=== PATIENT | female | born 1935 | race Caucasian/White ===

== ENCOUNTER → 2017-03-16 | Outpatient (CLI) | payer MEDICARE, BC ==
[~2017-03-16] MED LIST: ALBU8.5H8 INH; ASPI-496 PO; CARB1TAB20 PO; CARB1TAB46 PO; CHOL100014 PO; CRAN1CAP2 PO; FERR325T18 PO; FLUT1DIS5 IH; LACT1TAB3 PO; LEVO112T4 PO; LEVO750T26 PO; LISI-167 PO; LOVA40TA2 PO; METF10002 PO; OMEG500C3 PO; OMEP-110 PO; PRED-402 PO; PRED5TAB PO; SIMV20TA3 PO
== END | disposition home or self-care (01) ==
LOC: CFH 14:19
PROVIDERS: ATTEND Internal Medicine
DX: M25.474 Effusion, right foot (principal)

== ENCOUNTER → 2017-12-09 | Outpatient (CLI) | payer MEDICARE, BC | END | disposition home or self-care (01) | LOC: CFH 10:29 | PROVIDERS: ATTEND Internal Medicine | DX: Z13.820 Encounter for screening for osteoporosis (principal); E03.9 Hypothyroidism, unspecified; E08.40 Diabetes mellitus due to underlying condition with diabetic neuropathy, unspecified; E55.9 Vitamin D deficiency, unspecified; N95.9 Unspecified menopausal and perimenopausal disorder | CPT/HCPCS: 77080 ==

== ENCOUNTER → 2018-02-05 | Outpatient (CLI) | payer MEDICARE, BC ==
[2018-02-05 16:03] LABS: ALBUMIN 3.8 g/dL (3.4-5.0); ANION GAP 11 mmol/L (5-15); CALCIUM 10.1 mg/dL (8.5-10.1); CHLORIDE 105 mmol/L (98-107)
[2018-02-05 16:07] LABS: % IRON SATURATION 10 % (20-55); ALANINE AMINOTRANSFERASE 14 U/L (12-78); ALKALINE PHOSPHATASE 81 U/L (45-117); BILIRUBIN,TOTAL 0.3 mg/dL (0.2-1.0); CREATININE 0.77 mg/dL (0.55-1.02); IRON LEVEL 37 mcg/dL (50-170); TOTAL IRON BINDING CAPACITY 385 mcg/dL (250-450); TOTAL PROTEIN 7.3 g/dL (6.4-8.2)
[2018-02-05 16:10] LABS: BASOPHILS # (AUTO) 0.04 x10^3/uL (0-0.1); BASOPHILS % (AUTO) 1 % (0-1); EOSINOPHILS # (AUTO) 0.14 x10^3/uL (0-0.4); EOSINOPHILS % (AUTO) 2 % (1-7); LYMPHOCYTES # (AUTO) 1.57 x10^3/uL (1-3.4); LYMPHOCYTES % (AUTO) 17 % (22-44); MD NO; MEAN CORPUSCULAR HEMOGLOBIN 30.4 pg (27.0-34.8); MEAN CORPUSCULAR HGB CONC 33.3 g/dL (32.4-35.8); MEAN CORPUSCULAR VOLUME 91.4 fL (80-100); MEAN PLATELET VOLUME 8.5 fL (7.4-10.4); MONOCYTES # (AUTO) 0.35 x10^3/uL (0.2-0.8); MONOCYTES % (AUTO) 4 % (2-9); NEUTROPHILS # (AUTO) 7.04 x10^3/uL (1.8-6.8); NEUTROPHILS % (AUTO) 77 % (42-75); PLATELET COUNT 354 x10^3/uL (130-400); RED BLOOD COUNT 4.03 x10^6/uL (3.82-5.3); RED CELL DISTRIBUTION WIDTH 15.4 % (9.6-15.2)
== END | disposition home or self-care (01) ==
LOC: CFH 12:42
PROVIDERS: ATTEND Internal Medicine
DX: M17.11 Unilateral primary osteoarthritis, right knee (principal); D50.9 Iron deficiency anemia, unspecified; E11.65 Type 2 diabetes mellitus with hyperglycemia; I10 Essential (primary) hypertension; K21.9 Gastro-esophageal reflux disease without esophagitis
CPT/HCPCS: 36415; 80053; 82728; 83540; 83550; 85025

== ENCOUNTER → 2018-02-09 | Outpatient (CLI) | payer MEDICARE, BC | END | disposition home or self-care (01) | LOC: RAD 10:02 | PROVIDERS: ATTEND Internal Medicine | DX: M25.561 Pain in right knee (principal); M79.604 Pain in right leg; R60.9 Edema, unspecified ==

== ENCOUNTER 2018-04-06 15:56 | Inpatient (IN) | payer MEDICARE, BC ==
[~2018-04-06] VITALS: Ht 167.6 cm; Wt 83.3 kg
[2018-04-06 16:32] LABS: BASOPHILS # (AUTO) 0.02 x10^3/uL (0-0.1); BASOPHILS % (AUTO) 0 % (0-1); EOSINOPHILS # (AUTO) 0.11 x10^3/uL (0-0.4); EOSINOPHILS % (AUTO) 1 % (1-7); LYMPHOCYTES # (AUTO) 1.53 x10^3/uL (1-3.4); LYMPHOCYTES % (AUTO) 19 % (22-44); MD NO; MEAN CORPUSCULAR HEMOGLOBIN 30.3 pg (27.0-34.8); MEAN CORPUSCULAR HGB CONC 33.3 g/dL (32.4-35.8); MEAN CORPUSCULAR VOLUME 91.2 fL (80-100); MEAN PLATELET VOLUME 8.3 fL (7.4-10.4); MONOCYTES # (AUTO) 0.47 x10^3/uL (0.2-0.8); MONOCYTES % (AUTO) 6 % (2-9); NEUTROPHILS # (AUTO) 6.07 x10^3/uL (1.8-6.8); NEUTROPHILS % (AUTO) 74 % (42-75); PLATELET COUNT 300 x10^3/uL (130-400); RED BLOOD COUNT 3.88 x10^6/uL (3.82-5.3); RED CELL DISTRIBUTION WIDTH 14.8 % (9.6-15.2)
[2018-04-06 16:41] LABS: ALANINE AMINOTRANSFERASE 18 U/L (12-78); ALBUMIN 3.8 g/dL (3.4-5.0); ANION GAP 9 mmol/L (5-15); CALCIUM 9.7 mg/dL (8.5-10.1); CHLORIDE 106 mmol/L (98-107); CREATININE 0.71 mg/dL (0.55-1.02); INTERNATIONAL NORMALIZED RATIO 1.01 (0.93-1.1); PROTHROMBIN TIME 10.7 Seconds (9.6-11.5)
[2018-04-06 16:46] LABS: ALKALINE PHOSPHATASE 67 U/L (45-117); BILIRUBIN,TOTAL 0.3 mg/dL (0.2-1.0); TROPONIN I < 0.015 ng/mL (0.000-0.045)
[2018-04-06] MEDS ORDERED: BACITRACIN ZINC OINT 500U/GM, 0.9 GM ONE (16:49)
[2018-04-06] MEDS ORDERED: LISI-167 PO (17:08)
[2018-04-06] MEDS ORDERED: POLYETHYLENE GLYCOL 17 GM PACKET PO PRN (18:00)
[2018-04-06] MEDS: FERROUS SULFATE 325 MG TABLET PO SCH (18:00)
[2018-04-06] MEDS: CARBIDOPA/LEVODOPA 10 MG/100 MG TABLET PO SCH ×2 (18:00→22:23)
[2018-04-06] MEDS ORDERED: BISACODYL 10 MG SUPP PR PRN (18:00)
[2018-04-06] MEDS ORDERED: ONDANSETRON ODT 4 MG PO PRN (18:00)
[2018-04-06] MEDS ORDERED: ACETAMINOPHEN 325 MG TABLET PO PRN (18:00)
[2018-04-06] MEDS: BUDESONIDE 0.5 MG/2 ML INHA HHN SCH (18:30)
[2018-04-06] MEDS: ALBUTEROL SULFATE 2.5 MG/3 ML HHN SCH (18:30)
[2018-04-06] MEDS: SODIUM CHLORIDE FLUSH 10ML SYR IVF SCH (21:00)
[2018-04-06] MEDS ORDERED: TEMPLATE NON-FORMULARY MED. (Fluticasone/Salmeterol** (Advair 500-50 Diskus**) 1 PUFF) IH SCH (21:00)
[2018-04-06] MEDS: OMEPRAZOLE 20 MG CAPSULE.DR PO SCH (22:23)
[2018-04-06] MEDS: SIMVASTATIN 20 MG TABLET PO SCH (22:23)
[2018-04-06] MEDS: HEPARIN 5,000 UNITS/ML, 1ML SQ SCH (22:24)
[2018-04-07] VITALS (10 sets, daily range): BP systolic 87–136; BP diastolic 60–79
[2018-04-07] MEDS: ALBUTEROL SULFATE 2.5 MG/3 ML HHN SCH ×4 (00:30→18:30)
[2018-04-07 05:24] LABS: CHLORIDE 108 mmol/L (98-107)
[2018-04-07 05:33] LABS: BASOPHILS # (AUTO) 0.05 x10^3/uL (0-0.1); BASOPHILS % (AUTO) 1 % (0-1); EOSINOPHILS # (AUTO) 0.08 x10^3/uL (0-0.4); EOSINOPHILS % (AUTO) 1 % (1-7); LYMPHOCYTES # (AUTO) 1.66 x10^3/uL (1-3.4); LYMPHOCYTES % (AUTO) 27 % (22-44); MD NO; MEAN CORPUSCULAR HEMOGLOBIN 30.5 pg (27.0-34.8); MEAN CORPUSCULAR HGB CONC 33.7 g/dL (32.4-35.8); MEAN CORPUSCULAR VOLUME 90.3 fL (80-100); MEAN PLATELET VOLUME 8.1 fL (7.4-10.4); MONOCYTES # (AUTO) 0.41 x10^3/uL (0.2-0.8); MONOCYTES % (AUTO) 7 % (2-9); NEUTROPHILS # (AUTO) 4.04 x10^3/uL (1.8-6.8); NEUTROPHILS % (AUTO) 65 % (42-75); PLATELET COUNT 277 x10^3/uL (130-400); RED CELL DISTRIBUTION WIDTH 15.2 % (9.6-15.2)
[2018-04-07 05:35] LABS: ANION GAP 8 mmol/L (5-15); CALCIUM 9.9 mg/dL (8.5-10.1); CREATININE 0.61 mg/dL (0.55-1.02)
[2018-04-07 05:36] LABS: ALANINE AMINOTRANSFERASE 12 U/L (12-78); ALBUMIN 3.6 g/dL (3.4-5.0); ALKALINE PHOSPHATASE 62 U/L (45-117); BILIRUBIN,TOTAL 0.6 mg/dL (0.2-1.0); TOTAL PROTEIN 6.8 g/dL (6.4-8.2); TROPONIN I < 0.015 ng/mL (0.000-0.045)
[2018-04-07] MEDS: HEPARIN 5,000 UNITS/ML, 1ML SQ SCH ×3 (05:56→21:38)
[2018-04-07] MEDS: BUDESONIDE 0.5 MG/2 ML INHA HHN SCH ×2 (06:30→18:30)
[2018-04-07] MEDS: CARBIDOPA/LEVODOPA 10 MG/100 MG TABLET PO SCH ×4 (07:40→21:37)
[2018-04-07] MEDS ORDERED: metFORMIN XR 500 MG TAB.ER.24H PO SCH (09:00)
[2018-04-07] MEDS ORDERED: LEVOTHYROXINE 112 MCG TABLET PO SCH (09:00)
[2018-04-07] MEDS ORDERED: LISINOPRIL 10 MG TABLET PO SCH (09:00)
[2018-04-07] MEDS: SODIUM CHLORIDE FLUSH 10ML SYR IVF SCH ×2 (09:00→21:00)
[2018-04-07] MEDS ORDERED: TEMPLATE NON-FORMULARY MED. (Cranberry Conc/Ascorbic Acid** (Cranberry 12,600 Mg Softgel PO SCH (09:00)
[2018-04-07] MEDS: FERROUS SULFATE 325 MG TABLET PO SCH ×2 (09:19→15:51)
[2018-04-07] MEDS: SENNA/DOCUSATE TABLET PO SCH (09:19)
[2018-04-07] MEDS: LACTOBACILLUS CHEW TABLET PO SCH (09:20)
[2018-04-07] MEDS: ASPIRIN 81 MG TABLET EC PO SCH (09:20)
[2018-04-07] MEDS: CHOLECALCIFEROL 1,000 UNIT TABLET PO SCH (09:20)
[2018-04-07 11:48] LABS: TROPONIN I < 0.015 ng/mL (0.000-0.045)
[2018-04-07 14:41] LABS: HEMOGLOBIN A1C 6.4 % (4.2-6.3)
[2018-04-07] MEDS: INSULIN LISPRO 100 UNITS/ML, PEN SQ-INSULIN SCH ×2 (16:30→21:00)
[2018-04-07] MEDS ORDERED: SODIUM CHLORIDE 0.9%, 500ML IVBOLUS ONE (17:00)
[2018-04-07] MEDS: OMEPRAZOLE 20 MG CAPSULE.DR PO SCH (21:37)
[2018-04-07] MEDS: SIMVASTATIN 20 MG TABLET PO SCH (21:38)
[2018-04-08 01:12] VITALS: BP_SYST 110; BP_SYST 112; BP_SYST 97; BP_DIAS 61; BP_DIAS 71; BP_DIAS 74
[2018-04-08] MEDS: CARBIDOPA/LEVODOPA 10 MG/100 MG TABLET PO SCH ×4 (06:34→20:10)
[2018-04-08] MEDS: HEPARIN 5,000 UNITS/ML, 1ML SQ SCH ×3 (06:35→21:05)
[2018-04-08] MEDS: INSULIN LISPRO 100 UNITS/ML, PEN SQ-INSULIN SCH ×4 (07:00→20:11)
[2018-04-08 08:09] VITALS: BP_SYST 105; BP_SYST 133; BP_SYST 146; BP_DIAS 69; BP_DIAS 76; BP_DIAS 81
[2018-04-08] MEDS: CHOLECALCIFEROL 1,000 UNIT TABLET PO SCH (08:49)
[2018-04-08] MEDS: ASPIRIN 81 MG TABLET EC PO SCH (08:50)
[2018-04-08] MEDS: metFORMIN XR 500 MG TAB.ER.24H PO SCH (08:50)
[2018-04-08] MEDS: LEVOTHYROXINE 100 MCG TABLET PO SCH (08:50)
[2018-04-08] MEDS: SODIUM CHLORIDE FLUSH 10ML SYR IVF SCH ×2 (08:51→20:10)
[2018-04-08] MEDS: LACTOBACILLUS CHEW TABLET PO SCH (08:51)
[2018-04-08] MEDS: FERROUS SULFATE 325 MG TABLET PO SCH ×2 (08:51→17:21)
[2018-04-08] MEDS: SENNA/DOCUSATE TABLET PO SCH (08:51)
[2018-04-08] MEDS ORDERED: LISINOPRIL 5 MG TABLET PO SCH (09:00)
[2018-04-08] MEDS: SODIUM CHLORIDE 0.9% 1,000 ML IV SCH (11:23)
[2018-04-08] MEDS: BUDESONIDE 0.5 MG/2 ML INHA HHN SCH ×2 (11:26→18:30)
[2018-04-08 13:50] VITALS: BP_SYST 12; BP_SYST 127; BP_SYST 94; BP_DIAS 55; BP_DIAS 70; BP_DIAS 75
[2018-04-08] MEDS ORDERED: MAGNESIUM SULFATE PMX 4GM/100M 100 ML IV ONE (14:30)
[2018-04-08 19:30] VITALS: BP 126/77
[2018-04-08] MEDS: OMEPRAZOLE 20 MG CAPSULE.DR PO SCH (20:10)
[2018-04-08] MEDS: SIMVASTATIN 20 MG TABLET PO SCH (20:11)
[2018-04-09] VITALS (12 sets, daily range): BP systolic 109–157; BP diastolic 61–82
[2018-04-09] MEDS: SODIUM CHLORIDE 0.9% 1,000 ML IV SCH (01:04)
[2018-04-09] MEDS: CARBIDOPA/LEVODOPA 10 MG/100 MG TABLET PO SCH ×2 (05:17→11:43)
[2018-04-09] MEDS: HEPARIN 5,000 UNITS/ML, 1ML SQ SCH ×2 (05:17→14:00)
[2018-04-09 05:36] LABS: ANION GAP 9 mmol/L (5-15); CALCIUM 9.3 mg/dL (8.5-10.1); CHLORIDE 110 mmol/L (98-107)
[2018-04-09 05:37] LABS: CREATININE 0.61 mg/dL (0.55-1.02)
[2018-04-09] MEDS ORDERED: ALBUTEROL SULFATE 2.5 MG/3 ML HHN SCH (06:30)
[2018-04-09] MEDS: BUDESONIDE 0.5 MG/2 ML INHA HHN SCH (06:30)
[2018-04-09] MEDS: INSULIN LISPRO 100 UNITS/ML, PEN SQ-INSULIN SCH ×2 (07:00→11:00)
[2018-04-09] MEDS: SENNA/DOCUSATE TABLET PO SCH (08:39)
[2018-04-09] MEDS: ASPIRIN 81 MG TABLET EC PO SCH (08:39)
[2018-04-09] MEDS: LEVOTHYROXINE 100 MCG TABLET PO SCH (08:39)
[2018-04-09] MEDS: LACTOBACILLUS CHEW TABLET PO SCH (08:39)
[2018-04-09] MEDS: metFORMIN XR 500 MG TAB.ER.24H PO SCH (08:39)
[2018-04-09] MEDS: FERROUS SULFATE 325 MG TABLET PO SCH (08:40)
[2018-04-09] MEDS: SODIUM CHLORIDE FLUSH 10ML SYR IVF SCH (08:40)
[2018-04-09] MEDS: CHOLECALCIFEROL 1,000 UNIT TABLET PO SCH (08:40)
[2018-04-09] MEDS ORDERED: DOCU-131 PO (13:41)
[2018-04-09] MEDS ORDERED: CARB1TAB20 PO (13:41)
== END 2018-04-09 17:14 | disposition home or self-care (01) | DRG 74 ==
LOC: ED 17:00 → EDIP 17:01 → ED 17:09 → 4WST 18:12 → DCLOUNGE 04-09 16:50
PROVIDERS: ADMIT Internal Medicine; ATTEND Internal Medicine
DX: G90.8 Other disorders of autonomic nervous system (principal); S02.2XXA Fracture of nasal bones, initial encounter for closed fracture; D50.9 Iron deficiency anemia, unspecified; E11.9 Type 2 diabetes mellitus without complications; E78.5 Hyperlipidemia, unspecified; E83.42 Hypomagnesemia; E89.0 Postprocedural hypothyroidism; G20 Parkinson's disease; I10 Essential (primary) hypertension; K59.00 Constipation, unspecified; S80.02XA Contusion of left knee, initial encounter; S80.212A Abrasion, left knee, initial encounter; W18.39XA Other fall on same level, initial encounter; Y93.89 Activity, other specified; Y92.89 Other specified places as the place of occurrence of the external cause; Y99.8 Other external cause status; Z82.49 Family history of ischemic heart disease and other diseases of the circulatory system; Z66 Do not resuscitate; Z87.891 Personal history of nicotine dependence; Z90.710 Acquired absence of both cervix and uterus; R00.0 Tachycardia, unspecified
CPT/HCPCS: 0399T; 36415; 70486; 71045; 80048; 80053; 82533; 82962; 83036; 83735; 83880; 84443; 84484; 85025; 85610; 85730; 93005; 93306; 93880; 94640; 99285; G0378; J1644; J7613; J7626; J3475; J7030; J7040

== ENCOUNTER 2018-11-15 17:47 | Emergency (ER) | payer MEDICARE, BC ==
[~2018-11-15] VITALS: Ht 167.6 cm; Wt 76.0 kg
[~2018-11-15 17:47] MED LIST changes: +DOCU-131 PO
[2018-11-15] MEDS ORDERED: ASPIRIN 81 MG TABLET CHEW PO ONE (18:00)
--- NOTE | 2018-11-15 18:09 | NUR ---
PATIENT ARRIVES WITH DAUGHTER FROM [facility] WHERE SHE WENT TODAY FOR CONFUSION, WEAKNESS. MD THOUGHT PATIENT POSSIBLY HAVING A TIA. IN BED, RAILS UP.
[2018-11-15 18:13] LABS: BASOPHILS # (AUTO) 0.04 x10^3/uL (0-0.1); BASOPHILS % (AUTO) 1 % (0-1); EOSINOPHILS # (AUTO) 0.12 x10^3/uL (0-0.4); EOSINOPHILS % (AUTO) 2 % (1-7); LYMPHOCYTES # (AUTO) 1.66 x10^3/uL (1-3.4); LYMPHOCYTES % (AUTO) 23 % (22-44); MD NO; MEAN CORPUSCULAR HEMOGLOBIN 31.5 pg (27.0-34.8); MEAN CORPUSCULAR HGB CONC 32.9 g/dL (32.4-35.8); MEAN CORPUSCULAR VOLUME 95.8 fL (80-100); MEAN PLATELET VOLUME 7.6 fL (7.4-10.4); MONOCYTES % (AUTO) 6 % (2-9); NEUTROPHILS # (AUTO) 5.12 x10^3/uL (1.8-6.8); NEUTROPHILS % (AUTO) 70 % (42-75); PLATELET COUNT 330 x10^3/uL (130-400); RED BLOOD COUNT 4.04 x10^6/uL (3.82-5.3); RED CELL DISTRIBUTION WIDTH 14.6 % (9.6-15.2)
[2018-11-15 18:22] LABS: ALBUMIN 4.2 g/dL (3.4-5.0); ANION GAP 8 mmol/L (5-15); CHLORIDE 106 mmol/L (98-107); CREATININE 0.72 mg/dL (0.55-1.02)
[2018-11-15] MEDS ORDERED: ASPIRIN 81 MG TABLET CHEW ONE (18:22)
[2018-11-15 18:26] LABS: TROPONIN I < 0.015 ng/mL (0.000-0.045)
--- NOTE | 2018-11-15 19:59 | NUR ---
Pt assisst x 1 to BSC, attempting to void, family remains at bedside, fluids provided. Will f/u for UA.
--- NOTE | 2018-11-15 21:57 | NUR ---
PT UP TO BSC X 1 ASSISST, UNABLE TO VOID, DENIES PAIN. dAUGHTER AT BEDSIDE, WILL CONTIUNUE TO ATTEMPT. VITALS STABLE
--- NOTE | 2018-11-15 22:10 | NUR ---
Pt voids, urine collected, waiting for results, assisst back to bed, daughter remains at bedside.
[2018-11-15 22:31] LABS: MICROSCOPIC AUTO
[2018-11-15 23:04] LABS: CULTURE INDICATED? YES
--- NOTE | 2018-11-15 23:38 | NUR ---
SBP REMAINS HIGH, DENIES PAIN OR NEED TO USE BATHROOM, md NOTIFIED. 0.1MG CLONIDINE ADMINISTERED PER MD ORDERS, WILL MONITOR BP.
[2018-11-16 00:32] VITALS: BP 180/95
--- NOTE | 2018-11-16 00:32 | NUR ---
SBP improved, notified, ok to d/c home. Asymptomatic, all other vitals stable. Exitcare reviewed w/ pt and daughter, verbalize understanding. Taken by WC to front lobby for transfer home.
== END 2018-11-16 00:50 | disposition home or self-care (01) ==
LOC: ED 23:59
DX: R41.82 Altered mental status, unspecified (principal); N30.00 Acute cystitis without hematuria; E11.9 Type 2 diabetes mellitus without complications; I10 Essential (primary) hypertension; E07.9 Disorder of thyroid, unspecified; E78.5 Hyperlipidemia, unspecified; Z87.891 Personal history of nicotine dependence
CPT/HCPCS: 36415; 71045; 80048; 81001; 82040; 84443; 84484; 85025; 87086; 93005; 99284

== ENCOUNTER 2019-02-20 02:43 | Emergency (ER) | payer MEDICARE, BC ==
[~2019-02-20] VITALS: Ht 170.2 cm; Wt 70.0 kg
[~2019-02-20 02:43] MED LIST changes: +CEFD300C37 PO; +CHOL200078 PO; +FLUT1DIS3 INH; +IPRA30SP NS; +LACT1TAB13 PO; +LEVO100T5 PO; +LISI-170 PO; +MELA5TAB14 PO; +METF10007 PO; +METO50TA82 PO; +MONT10TA6 PO; +SERT100T32 PO
[2019-02-20] MEDS ORDERED: LIDOCAINE 1%-EPI 1:100K, 50ML INFIL ONE (03:00)
[2019-02-20] MEDS ORDERED: DIPH,PERTUSS(ACELL),TET VAC/PF NC IM-VACC ONE (03:00)
--- NOTE | 2019-02-20 03:04 | NUR ---
THIS 83 YOF BIB [facility] FROM [facility] S/P FALL. PT STATES "I JUST WENT DOWN." PT DENIED C/O CP, LIGHTHEADED, DENIED LOC. PT NOTED TO HAVE SKIN TEAR TO RIGHT ARM AND LAC TO ELBOW. PT REPORTS DID HIT HEAD ON FLOOR, DENIES LOC. PT DENIES N/V.
[2019-02-20] MEDS ORDERED: DIPH,PERTUSS(ACELL),TET VAC/PF 0.5 ML IM-VACC ONE ×2 (03:08→03:30)
--- NOTE | 2019-02-20 03:23 | NUR ---
TWISTER FRAME TENDER AT BEDSIDE TO IRRIGATE WOUNDS. PT GIVEN TDAP VACCINE ORDERED.
[2019-02-20] MEDS ORDERED: NEOSPORIN OINT. PKT 1 PACKET ONE (04:03)
[2019-02-20 04:14] VITALS: BP 165/71
--- NOTE | 2019-02-20 04:15 | NUR ---
EVENT MANAGER AT BEDSIDE TO CLEAN AND DRESS WOUNDS. THREE SUTURES TO ELBOW LAC, DRSG TO SKIN TEAR.
--- NOTE | 2019-02-20 04:32 | NUR ---
REVIEWED DISCHARGE INSTRUCTIONS W/ PT AND FAMILY MEMBER, VERBALIZED UNDERSTANDING TO INFORMATION PROVIDED INCLUDING FOLLOW UP CARE, RETURN PRECAUTIONS AND WOUND CARE. PT AND FAMILY MEMBER VERBALIZED UNDERSTANDING TO SUTURE REMOVAL IN 12 DAYS. PT WAS ASSISTED TO BR VIA WC. PT AND FAMILY MEMBER AWARE WAITING FOR [facility] TRANSFER BACK TO ASSISTED LIVING FACILITY.
--- NOTE | 2019-02-20 04:49 | NUR ---
REPORT CALLED TO B[place]OLO AT [facility]. AWARE PENDING TRANSFER VIA [facility] BACK TO [facility].
--- NOTE | 2019-02-20 04:57 | NUR ---
PT AND FAMILY MEMBER AWARE OF PENDING [facility] ARRIVAL AROUND 0530
--- NOTE | 2019-02-20 05:59 | NUR ---
[facility] ARRIVED TO TRANSFER PT BACK TO FACILITY.
== END 2019-02-20 06:01 | disposition home or self-care (01) ==
LOC: ED 03:48
DX: S51.011A Laceration without foreign body of right elbow, initial encounter (principal); S41.101A Unspecified open wound of right upper arm, initial encounter; I10 Essential (primary) hypertension; E78.5 Hyperlipidemia, unspecified; E11.9 Type 2 diabetes mellitus without complications; W01.0XXA Fall on same level from slipping, tripping and stumbling without subsequent striking against object, initial encounter; Y93.89 Activity, other specified; Y92.89 Other specified places as the place of occurrence of the external cause; Y99.8 Other external cause status
CPT/HCPCS: 12051; 90471; 90715

== ENCOUNTER 2019-05-06 16:49 | Emergency (ER) | payer MEDICARE, BC ==
[~2019-05-06] VITALS: Ht 167.6 cm; Wt 75.0 kg
[2019-05-06 17:03] VITALS: BP 148/66
--- NOTE | 2019-05-06 17:07 | NUR ---
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 PT WITH HX OF BLOODY NOSE THAT REQUIRED CAUTERIZATION. PT WITH HX HTN. VSS ON ARRIVAL
[2019-05-06] MEDS ORDERED: SILVER NITRATE STICK TP ONE (17:11)
[2019-05-06] MEDS ORDERED: DEXAMETHASONE 4 MG TABLET ONE (17:15)
[2019-05-06 17:38] LABS: BASOPHILS # (AUTO) 0.03 x10^3/uL (0-0.1); BASOPHILS % (AUTO) 1 % (0-1); EOSINOPHILS # (AUTO) 0.25 x10^3/uL (0-0.4); EOSINOPHILS % (AUTO) 4 % (1-7); LYMPHOCYTES # (AUTO) 1.54 x10^3/uL (1-3.4); LYMPHOCYTES % (AUTO) 26 % (22-44); MD NO; MEAN CORPUSCULAR HEMOGLOBIN 29.3 pg (27.0-34.8); MEAN CORPUSCULAR HGB CONC 32.6 g/dL (32.4-35.8); MEAN CORPUSCULAR VOLUME 89.8 fL (80-100); MEAN PLATELET VOLUME 8.1 fL (7.4-10.4); MONOCYTES # (AUTO) 0.33 x10^3/uL (0.2-0.8); MONOCYTES % (AUTO) 6 % (2-9); NEUTROPHILS # (AUTO) 3.73 x10^3/uL (1.8-6.8); NEUTROPHILS % (AUTO) 63 % (42-75); PLATELET COUNT 270 x10^3/uL (130-400); RED BLOOD COUNT 3.59 x10^6/uL (3.82-5.3); RED CELL DISTRIBUTION WIDTH 17.3 % (9.6-15.2)
--- NOTE | 2019-05-06 18:20 | NUR ---
PT GIVEN DISCHARGE INSTRUCTIONS, UNDERSTANDING STATED, AWAITING RIDE
--- NOTE | 2019-05-06 18:33 | NUR ---
ATTEMPTING TO LOCATE A RIDE FOR PT. [facility] CALLED NO ANSWER, DAUGHTER AND CAREGIVER CALLED, MESSAGES LEFT.
--- NOTE | 2019-05-06 19:04 | NUR ---
PT'S DAUGHTER CALLED ER. 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
== END 2019-05-06 18:48 | disposition home or self-care (01) ==
LOC: ED 17:45
DX: R04.0 Epistaxis (principal); J44.9 Chronic obstructive pulmonary disease, unspecified; J20.9 Acute bronchitis, unspecified; I10 Essential (primary) hypertension; E11.9 Type 2 diabetes mellitus without complications
CPT/HCPCS: 30901; 36415; 71045; 85025; 99284